=== PATIENT | male | born 1950 | race Caucasian/White ===

== ENCOUNTER → 2023-01-28 | Outpatient (CLI) | payer MEDICARE, BC | LOC: RAD 13:40 | PROVIDERS: ATTEND Internal Medicine Critical Care Medicine | DX: R06.00 Dyspnea, unspecified (principal) | CPT/HCPCS: 71046 ==

== ENCOUNTER 2023-08-25 11:38 | Emergency (ER) | payer MEDICARE, BC ==
[~2023-08-25] VITALS: Ht 172.7 cm; Wt 68.0 kg
[2023-08-25] MEDS ORDERED: TETANUS/DIPHTHERIA TOX ADULT 0.5 ML SYR IM ONE (11:45)
[2023-08-25 11:46] VITALS: O2SAT 96
[2023-08-25] MEDS ORDERED: FINASTERIDE5 MG PO (11:53)
[2023-08-25] MEDS ORDERED: BLOOD PRESSURE (11:53)
[2023-08-25] MEDS ORDERED: OMEPRAZOLE40 MG PO (11:53)
[2023-08-25] MEDS ORDERED: CHOLESTEROL (11:53)
[2023-08-25] MEDS ORDERED: TETANUS/DIPHTHERIA TOX ADULT 0.5 ML SYR ONE (11:58)
[2023-08-25] MEDS ORDERED: BACITRACIN ZINC 0.9GM TP ONE (12:15)
[2023-08-25] MEDS ORDERED: LIDOCAINE HCL 1% LOCAL INJ 20 ML VIAL INJ ONE (12:15)
[2023-08-25] MEDS ORDERED: CEPHALEXIN500 MG PO (12:24)
== END 2023-08-25 12:29 | disposition home or self-care (01) ==
LOC: FSED 11:42
DX: S61.213A Laceration without foreign body of left middle finger without damage to nail, initial encounter (principal); W26.8XXA Contact with other sharp object(s), not elsewhere classified, initial encounter; Y92.89 Other specified places as the place of occurrence of the external cause; I10 Essential (primary) hypertension; K21.9 Gastro-esophageal reflux disease without esophagitis
CPT/HCPCS: 90471; 90714; 99283